=== PATIENT | male | born 1960 | race Caucasian/White ===

== ENCOUNTER 2016-08-12 06:09 | Day surgery (SDC) | payer OTHER ==
[~2016-08-12] VITALS: Ht 165.1 cm; Wt 100.0 kg
[2016-08-12] MEDS ORDERED: SODIUM CHLORIDE 0.9% 1,000 ML IV ONE ×2 (06:15→06:33)
[2016-08-12] MEDS ORDERED: GLIM4 PO (07:12)
[2016-08-12] MEDS ORDERED: SITA100 PO (07:12)
[2016-08-12] MEDS ORDERED: METF10002 PO (07:12)
[2016-08-12] MEDS ORDERED: INSLAN SQ (07:12)
[2016-08-12] MEDS ORDERED: HYDR25TA PO (07:13)
[2016-08-12] MEDS ORDERED: ASPI-1093 PO (07:13)
[2016-08-12] MEDS ORDERED: KETO5DRO6 OU (07:13)
[2016-08-12] MEDS ORDERED: TAMS0.4C32 PO (07:13)
[2016-08-12] MEDS ORDERED: CARV12 PO (07:13)
[2016-08-12] MEDS ORDERED: LOSA100T29 PO (07:13)
[2016-08-12] MEDS ORDERED: ROSU40 PO (07:13)
[2016-08-12] MEDS ORDERED: CYCL05OE OU (07:13)
[2016-08-12] MEDS ORDERED: NITR.4 SL (07:13)
[2016-08-12] MEDS ORDERED: CHOL2000 PO (07:13)
[2016-08-12] MEDS ORDERED: TOPI50TA90 PO (07:13)
[2016-08-12] MEDS ORDERED: DOCU100C19 PO (07:13)
[2016-08-12 07:16] LABS: GLUCOSE,POINT OF CARE 168 MG/DL (70-110)
[2016-08-12] MEDS ORDERED: FAMO20TA8 PO (07:26)
[2016-08-12] MEDS ORDERED: BACL10TA PO (07:26)
[2016-08-12] MEDS ORDERED: BUSP10TA23 PO (07:26)
[2016-08-12] MEDS ORDERED: ALBU8.5H IH (07:26)
[2016-08-12] MEDS ORDERED: ADV500 IH (07:26)
[2016-08-12] MEDS ORDERED: PARO40TA PO (07:26)
[2016-08-12] MEDS ORDERED: P-EP-31 PO (07:26)
[2016-08-12] MEDS ORDERED: LACT10SO46 PO (07:26)
[2016-08-12] MEDS ORDERED: PRED10 PO (07:26)
[2016-08-12] MEDS ORDERED: TRAZ-147 PO (07:26)
[2016-08-12] MEDS ORDERED: BUTA-256 PO (07:26)
[2016-08-12] MEDS ORDERED: HYDR30CR77 RC (07:26)
[2016-08-12] MEDS ORDERED: MONT10TA21 PO (07:26)
[2016-08-12] MEDS ORDERED: AZEL137S8 NASAL (07:26)
[2016-08-12] MEDS ORDERED: OXYC-522 PO (07:26)
[2016-08-12] MEDS ORDERED: MIDAZOLAM HCL 2 MG/2 ML VIAL ONE (07:51)
[2016-08-12] MEDS ORDERED: FentaNYL CITRATE-PF 100 MCG/2 ML VIAL ONE (07:51)
[2016-08-12] MEDS ORDERED: MethylPREDNISolone SOD SUCC 125 MG/2 ML VIAL IVP ONE (09:00)
[2016-08-12] MEDS ORDERED: MethylPREDNISolone SOD SUCC 125 MG/2 ML VIAL ONE (09:36)
[2016-08-12] MEDS ORDERED: LIDOCAINE HCL 4% 50 ML SOLUTION TP ONE (11:57)
[2016-08-12] MEDS ORDERED: BENZOCAINE 20% 50 MCG/SPRAY 57 GM TP ONE (11:57)
[2016-08-12] MEDS ORDERED: LIDOCAINE HCL 2% 30 ML JELLY TP ONE (11:57)
[2016-08-12] MEDS ORDERED: OXYGEN THERAPY IH SCH (20:00)
== END 2016-08-12 10:25 | disposition home or self-care (01) ==
LOC: SURGERY 06:09
PROVIDERS: ATTEND Internal Medicine Critical Care Medicine
DX: J38.4 Edema of larynx (principal); B37.0 Candidal stomatitis; J45.909 Unspecified asthma, uncomplicated; E78.00 Pure hypercholesterolemia, unspecified; E11.9 Type 2 diabetes mellitus without complications; M54.9 Dorsalgia, unspecified; M54.30 Sciatica, unspecified side; N20.0 Calculus of kidney; Z98.890 Other specified postprocedural states; Z87.891 Personal history of nicotine dependence
CPT/HCPCS: 31623; 31624; 71010; 82962; 87015; 87070; 87101; 87205; 87220; 93005; J2250; J2930; J3010; J7030; 88108; 88312

== ENCOUNTER 2019-05-26 06:26 | Day surgery (SDC) | payer OTHER ==
[~2019-05-26] VITALS: Ht 167.6 cm; Wt 100.0 kg
[~2019-05-26 06:26] MED LIST: ADV500 IH; ALBU8.5H8 IH; ASPI-1182 PO; AZEL137S8 NASAL; BACL10TA PO; BUSP10TA23 PO; BUTA-256 PO; CARV12 PO; CHOL2000 PO; CYCL05OE OU; DOCU-281 PO; FAMO20TA8 PO; GLIM4 PO; HYDR25TA PO; HYDR30CR77 RC; INSLAN SQ; KETO5DRO6 OU; LACT10SO46 PO; LOSA100T58 PO; METF-446 PO; MONT10TA21 PO; NITR0.4T52 SL; OXYC-522 PO; P-EP-31 PO; PARO40TA PO; PRED10 PO; ROSU40 PO; SITA100 PO; SODIUM CHLORIDE 0.9% 1,000 ML IV ONE; TAMS-13 PO; TOPI50TA24 PO; TRAZ-186 PO
[2019-05-26] MEDS ORDERED: BENZOCAINE 20% 50 MCG/SPRAY 57 GM TP ONE (06:27)
[2019-05-26] MEDS ORDERED: LIDOCAINE 4% 50 ML SOLUTION TP ONE (06:27)
[2019-05-26] MEDS ORDERED: ALBUTEROL SULFATE 2.5 MG/0.5 ML NEB SOLUTION NEB ONE (06:27)
[2019-05-26] MEDS ORDERED: LIDOCAINE 2% 30 ML JELLY TP ONE (06:27)
[2019-05-26] MEDS ORDERED: SODIUM CHLORIDE 0.9% 1,000 ML IV ONE (06:30)
[2019-05-26] MEDS ORDERED: FentaNYL CITRATE-PF 100 MCG/2 ML VIAL ONE (07:32)
[2019-05-26] MEDS ORDERED: MIDAZOLAM HCL 2 MG/2 ML VIAL ONE (07:32)
[2019-05-26 07:51] LABS: GLUCOMETER DEV NAME(LOC) SDS.; GLUCOSE,POINT OF CARE 112 MG/DL (70-110)
[2019-05-26] MEDS ORDERED: MethylPREDNISolone SOD SUCC 125 MG/2 ML VIAL IVP ONE ×2 (08:45→09:00)
[2019-05-26] MEDS ORDERED: MethylPREDNISolone SOD SUCC 125 MG/2 ML VIAL ONE (09:05)
[2019-05-26] MEDS ORDERED: FINA5TAB41 PO (09:50)
[2019-05-26] MEDS ORDERED: INSU100I3 SQ (09:50)
[2019-05-26] MEDS ORDERED: SUMA25TA9 PO (09:50)
[2019-05-26] MEDS ORDERED: SEMA1PEN SQ (09:50)
[2019-05-26] MEDS ORDERED: INSU200I4 SQ (09:50)
[2019-05-26] MEDS ORDERED: KETO10DR3 OU (09:50)
[2019-05-26] MEDS ORDERED: RANI150T7 PO (09:50)
[2019-05-26] MEDS ORDERED: EREN70AU2 SQ (09:50)
[2019-05-26] MEDS ORDERED: METF500T20 PO (09:50)
[2019-05-26] MEDS ORDERED: ADV500 IH (09:51)
[2019-05-26] MEDS ORDERED: TIOT4MIS2 PO (09:51)
[2019-05-26] MEDS ORDERED: OXYGEN THERAPY IH SCH ×2 (20:00)
== END 2019-05-26 10:40 | disposition home or self-care (01) ==
LOC: SURGERY 06:26
PROVIDERS: ATTEND Internal Medicine Critical Care Medicine
DX: R05 Cough (principal); R91.1 Solitary pulmonary nodule; J34.89 Other specified disorders of nose and nasal sinuses; B37.0 Candidal stomatitis; I25.10 Atherosclerotic heart disease of native coronary artery without angina pectoris; I10 Essential (primary) hypertension; J44.9 Chronic obstructive pulmonary disease, unspecified; G47.33 Obstructive sleep apnea (adult) (pediatric); Z79.899 Other long term (current) drug therapy
CPT/HCPCS: 31623; 31624; 71045; 82962; 87015; 87070; 87101; 87205; 87206; 87220; 88108; 88312; J2250; J2930; J3010; J7030